=== PATIENT | male | born 1985 | race Caucasian/White ===

== ENCOUNTER 2024-02-09 22:53 | Emergency (ER) | payer MEDICAID ==
[~2024-02-09] VITALS: Ht 172.7 cm; Wt 83.9 kg
[2024-02-09 23:00] VITALS: O2SAT 98
== END 2024-02-09 23:40 | disposition left against medical advice (07) ==
LOC: ER 22:54
DX: R07.89 Other chest pain (principal)
CPT/HCPCS: A4606; A4663